=== PATIENT | female | born 1940 | race Two or more races ===

== ENCOUNTER 2016-09-17 11:57 | Inpatient (IN) | payer OTHER ==
[~2016-09-17] VITALS: Ht 152.4 cm; Wt 44.3 kg
--- NOTE | 2016-09-17 12:10 | NUR ---
PT NIMCO BURCIAGA FROM HOME FOR MEDICAL CLEARANCE TO PSYCH. PT ON 5150 HOLD FOR DTS/DTO. A/OX3. DENIES PHYSICAL COMPLAINT. CALM AND COMPLIANT WITH STAFF INSTRUCTION. NAD NOTED. DAUGHTER AT BEDSIDE.
[2016-09-17 12:24] LABS: BASOPHILS # (AUTO) 0.1 /CMM (0.0-0.2); BASOPHILS % (AUTO) 1.1 % (0.0-2.0); EOSINOPHILS % (AUTO) 0.7 % (0.0-6.0); HEMATOCRIT 36 % (33-45); MEAN CORPUSCULAR HEMOGLOBIN 32 PG (26.0-33.0); MEAN CORPUSCULAR HGB CONC 34 g/dl (31.0-36.0); MEAN CORPUSCULAR VOLUME 95 fL (82-100); MONOCYTES # (AUTO) 0.2 /CMM (0.1-1.30); MONOCYTES % (AUTO) 4.7 % (2.0-12.0); NEUTROPHILS # (AUTO) 3.5 /CMM (1.8-8.9); NEUTROPHILS % (AUTO) 71.5 % (43.0-81.0); PLATELET COUNT (AUTO) 302 /CMM (150-450); RDW COEFFICIENT OF VARIATION 12.3 (11.5-15.0); RED BLOOD CELL COUNT(AUTO) 3.76 MIL/uL (4.0-5.2); WHITE BLOOD COUNT (AUTO) 4.8 K/uL (4.3-11.0)
[2016-09-17 12:33] LABS: CALCIUM, SERUM 8.8 mg/dL (8.5-10.1); CARBON DIOXIDE 31 mmol/L (21-32); CHLORIDE 106 mmol/L (98-107); CREATININE 1.1 mg/dL (0.6-1.3); GLUCOSE 107 mg/dL (74-106); POTASSIUM 4.5 mmol/L (3.5-5.1); SODIUM SERUM 141 mmol/L (136-145); UREA NITROGEN, BLOOD 21 mg/dL (7-18)
[2016-09-17 12:34] LABS: APPEARANCE,URINE Clear (CLEAR); BLOOD, URINE Small Ery/uL (NEGATIVE); COLOR,URINE Yellow (YELLOW); KETONES,URINE Trace (NEGATIVE); LEUKOCYTE ESTERASE ,URINE Negative (NEGATIVE); NITRITE, URINE Negative (NEGATIVE); PROTEIN,URINE 100 mg/dl (NEGATIVE); UGLUCOSE Negative (NEGATIVE)
[2016-09-17 12:35] LABS: BILIRUBIN,URINE SMALL (NEGATIVE)
[2016-09-17 12:37] LABS: ADD URINE CULTURE NO; BACTERIA,URINE Few /HPF (None Seen); SQUAMOUS EPITHELIAL CELL,UR Few /HPF (None Seen); WBC,URINE 0-2 /HPF (0-3)
[2016-09-17 12:39] LABS: ALANINE AMINOTRANSFERASE 24 U/L (12-78); ALBUMIN 3.8 g/dL (3.4-5.0); ALCOHOL, BLOOD < 3 mg/dL (0-0); ALKALINE PHOSPHATASE 77 U/L (46-116); ASPARTATE AMINOTRANSFERASE 28 U/L (15-37); BILIRUBIN,DIRECT 0.1 mg/dL (0.0-0.2); BILIRUBIN,TOTAL 0.2 mg/dL (0.2-1.0); TOTAL PROTEIN, SERUM 7.2 g/dL (6.4-8.2)
[2016-09-17 12:40] LABS: ACETAMINOPHEN 0 ug/ml (10-30); SALICYLATE 1.3 mg/dL (2.8-20.0)
[2016-09-17 12:48] LABS: CANNABINOID, URINE NEGATIVE (NEGATIVE); PHENCYCLIDINE SCREEN,URINE NEGATIVE (NEGATIVE)
--- NOTE | 2016-09-17 12:54 | NUR ---
REPORT GIVEN TO JORGITO ELDRIDGE FOR ADMISSION
--- NOTE | 2016-09-17 13:46 | NUR ---
PT TRANSPORTED TO [facility] IN STABLE CONDITION
--- NOTE | 2016-09-17 14:11 | NUR ---
RN-CO: DR GARCIA WAS NOTIFIED REGARDING THE ADMISSION, AND GAVE ADMITTING ORDERS. PATIENT WAS WITH DAUGHTER DURING ADMISSION PROCESS AND SIGNED ALL ADMITTING PAPERS AFTER RN EXPLAINED TO HER. BELONGINGS WAS SCREENED FOR CONTRABANDS.
--- NOTE | 2016-09-17 14:14 | NUR ---
RN-CO: PATIENT'S RIGHT BOOKLET WAS GIVEN AND EXPLAINED TO HER AND TO HER DAUGHTER.
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
[2016-09-17 14:30] VITALS: BP 164/86
[2016-09-17] MEDS ORDERED: LORAZEPAM 0.5 MG TABLET PO PRN (14:30)
[2016-09-17] MEDS ORDERED: ACETAMINOPHEN 325 MG TABLET PO PRN (14:30)
[2016-09-17] MEDS ORDERED: MAG HYDROX/AL HYDROX/SIMETH 30 ML UDC PO PRN (14:30)
[2016-09-17] MEDS ORDERED: MAGNESIUM HYDROXIDE 30 ML UDC PO PRN (14:30)
[2016-09-17 16:12] VITALS: BP 152/77
[2016-09-17] MEDS ORDERED: OLANZAPINE 2.5 MG TABLET PO PRN (16:30)
[2016-09-17] MEDS ORDERED: OLANZAPINE 2.5 MG TABLET PO SCH (20:00)
[2016-09-17 21:45] VITALS: BP 133/76
[2016-09-17] MEDS: TEMAZEPAM 7.5 MG CAPSULE PO PRN (23:29)
[2016-09-18] MEDS: TEMAZEPAM 7.5 MG CAPSULE PO PRN ×2 (01:19→23:18)
[2016-09-18 07:35] LABS: ALBUMIN 3.3 g/dL (3.4-5.0); BILIRUBIN,TOTAL 0.4 mg/dL (0.2-1.0); CALCIUM, SERUM 8.6 mg/dL (8.5-10.1); CREATININE 0.9 mg/dL (0.6-1.3); POTASSIUM 4.3 mmol/L (3.5-5.1); TOTAL PROTEIN, SERUM 6.3 g/dL (6.4-8.2)
[2016-09-18 08:00] VITALS: BP 155/72
[2016-09-18] MEDS: SERTRALINE HCL 25 MG TABLET PO SCH (08:10)
--- NOTE | 2016-09-18 10:27 | NUR ---
UR Update: TEJAS lucas Brittny (phone: [phone]) family preservation caseworker for [facility] reynoso voicemail with clinical review. material requirements worker faxed Brittny (fax: [phone]) face sheet, 5150 hold, and NEENA form.
--- NOTE | 2016-09-18 12:21 | NUR ---
Psychosocial assessment was reviewed and I concur with the information provided. No changes are necessary. Destini Aguiar, [employer] [id number] Addendum: 09/18/16 at 1221 by DESTINI AGUIAR SW Amended: Links added.
--- NOTE | 2016-09-18 12:21 | NUR ---
Initial Discharge Plan: Patient resides alone in a mobile home [address] [facility] [address] ([phone]). Patient wants to return home upon discharge. canvas worker apprentice spoke to patient's daughter Armida Dove(/[phone]) who stated that she wanted her mother to return home as her and her sister live close to her and check in on her every day. canvas worker apprentice will follow- up with MD, family, and patient regarding appropriate discharge plan. canvas worker apprentice will help form a safe and proper discharge.
--- NOTE | 2016-09-18 13:23 | NUR ---
WOUND CARE CONSULT: PT NOTED TO HAVE DRY ABRASIONS TO LEGS, PRESENT ON ADMISSION. NO DRAINAGE NOTED. PT IS AMBULATORY AND CONTINENT. WILL SEE PRN.
--- NOTE | 2016-09-18 14:52 | NUR ---
bake room worker spoke to Mehrdad ([phone]) skilled nursing case manager for [facility] who stated that patient had refused there services in the past and was recently seeing an outreach team from [facility] from [facility]. Mehrdad stated that he would like to come speak to her and possibly get her enrolled in their case management program to provide after care services for her. bake room worker will follow-up.
--- NOTE | 2016-09-18 15:12 | NUR ---
UR Update: TEJAS spoke to Brittny (phone: [phone]) embedded case manager for [facility] who confirmed approval through September 20, 2016, with the next review due Tuesday September 20, 2016.
[2016-09-18 16:00] VITALS: BP 138/66
[2016-09-18] MEDS: OLANZAPINE 2.5 MG TABLET PO SCH (20:07)
[2016-09-18 20:17] VITALS: BP 135/77
[2016-09-19 08:00] VITALS: BP 149/71
[2016-09-19] MEDS: SERTRALINE HCL 25 MG TABLET PO SCH (08:09)
[2016-09-19 16:00] VITALS: BP 142/74
[2016-09-19 20:00] VITALS: BP_SYST 143; BP_SYST 145; BP_DIAS 63; BP_DIAS 65; BP_DIAS 85
[2016-09-19] MEDS: OLANZAPINE 2.5 MG TABLET PO SCH (20:10)
[2016-09-20 07:37] LABS: CALCIUM, SERUM 8.6 mg/dL (8.5-10.1); CREATININE 0.9 mg/dL (0.6-1.3); POTASSIUM 4.4 mmol/L (3.5-5.1)
[2016-09-20 08:00] VITALS: BP 164/66
[2016-09-20] MEDS: SERTRALINE HCL 25 MG TABLET PO SCH (08:20)
--- NOTE | 2016-09-20 09:22 | NUR ---
marquetry worker spoke to patient's director case Winnie ([phone]) from [facility] with the Department of Mental Health. Winnie stated that she would fax over consent of release of information for the patient that is needed to provide her with a follow-up appointment with the psychiatrist. marquetry worker will follow-up.
--- NOTE | 2016-09-20 13:10 | NUR ---
UR Update: TEJAS left Carry (phone: [phone]) case preparer and liner for [facility] reynoso voicemail with updated clinical.
[2016-09-20 16:00] VITALS: BP 136/66
[2016-09-20 20:00] VITALS: BP 145/79
[2016-09-20] MEDS: OLANZAPINE 2.5 MG TABLET PO SCH (20:07)
[2016-09-20] MEDS: TEMAZEPAM 7.5 MG CAPSULE PO PRN (22:10)
[2016-09-21 08:00] VITALS: BP 151/76
[2016-09-21] MEDS: SERTRALINE HCL 25 MG TABLET PO SCH (08:20)
[2016-09-21 15:59] VITALS: BP 156/75
[2016-09-21] MEDS: OLANZAPINE 2.5 MG TABLET PO SCH (19:08)
[2016-09-21 20:00] VITALS: BP 152/75
[2016-09-22 08:00] VITALS: BP 161/83
[2016-09-22] MEDS: SERTRALINE HCL 25 MG TABLET PO SCH (08:33)
[2016-09-22 10:56] VITALS: BP 138/67
--- NOTE | 2016-09-22 14:15 | NUR ---
GPS/RN PT IS VISUALLY MORE CALM AND NOT AGITATED COMPARE TO PREVIOUS DAYS. NO BEHAVIOR ISSUES NOTED ACCORDING TO BIOLOGICAL CHEMIST NURSE SURI ELDRIDGE. REPORT TO PT'S DAUGHTER BEVERLEY REGARDING HER MOTHER MEDICATIONS,TREATMENT, PROGRESS AND OVERALL CONDITION GIVEN ON HER ARRIVAL TO THE UNIT REQUESTED. WITNESSED THE CONVERSATION BETWEEN DR GARCIA AND PT 'S DAUGHTER. ALL QUESTIONS FROM DAUGHTER WERE ANSWERED APPROPRIATELY. PERSONALLY WALKED PT DAUGHTER TO THE DOOR AND REASSURED THAT PT WILL BE MONITORED CLOSELY.
[2016-09-22 16:00] VITALS: BP 157/77
[2016-09-22 20:01] VITALS: BP 151/69
[2016-09-22] MEDS: OLANZAPINE 2.5 MG TABLET PO SCH (20:02)
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
--- NOTE | 2016-09-22 23:21 | NUR ---
GPS RN NOTES PT IS RESTING IN THE BED WITH EYES CLOSED,NO ACUTE DISTRESS NOTED, NO BX PROBLEMS NOTED AT THIS TIME AND CALM COOPERATIVE , WILL CONTINUE TO MONITOR FOR BEHAVIOR AND SAFETY
--- NOTE | 2016-09-23 06:11 | NUR ---
GPS RN NOTES PT REMAINED STABLE , AND PT. 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
[2016-09-23 08:00] VITALS: BP 160/91
[2016-09-23] MEDS: LISINOPRIL (20MG) 20 MG TABLET PO SCH (08:03)
[2016-09-23] MEDS: SERTRALINE HCL 25 MG TABLET PO SCH (08:03)
--- NOTE | 2016-09-23 10:58 | NUR ---
UR Update: SW left Carry (phone: [phone]) counseling case manager for [facility] a voicemail with updated clinical. breaker table worker will follow-up.
--- NOTE | 2016-09-23 13:15 | NUR ---
manufacturing worker faxed a consent of release of information signed by the patient to her rn field case manager Winnie ([phone]) from [facility] with the Department of Mental Health. manufacturing worker will follow-up.
--- NOTE | 2016-09-23 14:20 | NUR ---
SW met with pt's daughters Armida Dove(/[phone]) and Jenny [phone] and explained the process of dis-enrolling from [facility] and enrolling back into straight medicare and gave referral to follow up applying for [employer]i-[employer] for the patient. They were disappointed that pt. could not stay at the hospital for longer than she may need to but agree to pick her up when pt. needs to discharge.
--- NOTE | 2016-09-23 14:21 | NUR ---
UR update: SW left a voicemail for [employer] (phone: [phone]) regarding pt's court hearing update. Pt's hold was upheld and pt. can stay until MD discharges the patient.
--- NOTE | 2016-09-23 15:01 | NUR ---
dry drug worker spoke to Mehrdad ([phone]) outpatient case manager for [facility] who notified that he will come Friday morning to talk to the patient regarding after care.
[2016-09-23 16:23] VITALS: BP 103/64
--- NOTE | 2016-09-23 16:26 | NUR ---
UR update: SW received a voicemail from [employer] (phone: [phone]) from [facility] and we are authorized until September 24, with a review due on the 25 of September if pt. continues to meet criteria for psychiatric hospitalization. TEJAS will follow up
[2016-09-23 19:39] VITALS: BP_SYST 116; BP_SYST 151; BP_DIAS 59; BP_DIAS 69
[2016-09-23] MEDS: OLANZAPINE 2.5 MG TABLET PO SCH (20:02)
--- NOTE | 2016-09-24 06:22 | NUR ---
GPS RN NOTES PT REMAINED STABLE , AND PT. 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
[2016-09-24] MEDS: SERTRALINE HCL 25 MG TABLET PO SCH (08:08)
[2016-09-24] MEDS: LISINOPRIL (20MG) 20 MG TABLET PO SCH (08:08)
[2016-09-24 08:26] VITALS: BP 164/74
--- NOTE | 2016-09-24 09:34 | NUR ---
TEJAS left a voicemail for Jenny [phone] , pt's daughter, informing of pt's discharge for tomorrow and asking to call back to confirm a receipt of the message and agreement to picker/puller the patient. Addendum: 09/25/16 at 1040 by LINDA LAZARO Jenny called back and left a voicemail confirming that they will picker/puller the patient today.
[2016-09-24 09:55] VITALS: BP 132/65
[2016-09-24 16:01] VITALS: BP 122/76
[2016-09-24 19:59] VITALS: BP 132/65
[2016-09-24] MEDS: OLANZAPINE 2.5 MG TABLET PO SCH (20:25)
[2016-09-24] MEDS ORDERED: DONEPEZIL 5 MG TABLET PO SCH (22:00)
--- NOTE | 2016-09-25 06:41 | NUR ---
GPS RN NOTES PT REMAINED STABLE , AND PT. 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
[2016-09-25] MEDS: LISINOPRIL (20MG) 20 MG TABLET PO SCH (08:27)
[2016-09-25] MEDS: SERTRALINE HCL 25 MG TABLET PO SCH (08:27)
[2016-09-25 08:28] VITALS: BP 154/73
--- NOTE | 2016-09-25 10:36 | NUR ---
division merchandise manager from [facility] (phone: [phone]) left addiction social worker a voicemail regarding nursing home facilities [facility] ([phone]), [facility] ([place]- [phone]), and [facility] ([facility]cx[facility]-[phone]). relief worker spoke to Brittny regarding whether insurance would authorize more days so that addiction social worker can fax the nursing home facilitates and follow-up. Brittny stated that it was no longer necessary stating that the family did not want a nursing home facility. Brittny stated that if patient was ready for discharge than patient can be discharged back home today and if for any reason patient needed a longer stay than addiction social worker must provide clinicals.
--- NOTE | 2016-09-25 14:06 | NUR ---
FELT HAT INSPECTOR AND PACKER PT DC UNDER STABLE CONDITION SO SUICIDAL IDEATION, HALLUCINATION, VERBALIZED, EXIT CARE DONE, TEACHING DONE TO PT AND HER DAUGHTER, SHE LEFT HOSPITAL WITH DAUGHTER. EXIT CARE DONE PT LEFT STABLE UNDER STABLE CONDITION.
--- NOTE | 2016-09-25 16:01 | NUR ---
Discharge Note: Patient was discharged back home [address] [facility] [address] ([phone]). Patient's daughter's Armida Dove ([phone]) and Jenny ([phone]) were notified and picked her up via private vehicle. Patient and patient's daughter were agreeable with discharge plan. Patient's mood and affect were appropriate upon discharge. Patient denied suicidal and homicidal ideations. Patient and patient's daughter were informed about patient's follow-up appointments. Patient has a scheduled appointment with psychiatrist Sadiq Wiley MD September 30, 2016 at 11:30am at [address] [place] [address] ([phone]). Patient also has a follow-up appointment scheduled for October 02, 2016 with therapist Kemi Gan at [facility] [address] [place] [address] [address] [place] [address] ([phone]). viscose cellar worker spoke to patient's daughter Armida regarding future placement options for the patient and informed her that in the future if she wanted placement for the patient they can contact the insurance and social service manager also informed her that she may be able to assist her and provided patient's daughter with her contact information. Facilitated info to IDT team who are in agreement with discharge arrangement. The multidisciplinary exitcare form was done, printed, signed, and given to the patient.
--- NOTE | 2016-09-26 11:50 | NUR ---
UR Update: TEJAS faxed Pearl (phone: [phone]/fax: [phone] ) counter caser for [facility] discharge note and med-list.
== END 2016-09-25 14:15 | disposition home or self-care (01) | DRG 885 ==
LOC: ER 12:03 → GPS 13:05
PROVIDERS: ADMIT Psychiatry & Neurology Psychosomatic Medicine; ATTEND Family Medicine
DX: F20.9 Schizophrenia, unspecified (principal); F02.80 Dementia in other diseases classified elsewhere, unspecified severity, without behavioral disturbance, psychotic disturbance, mood disturbance, and anxiety; F33.1 Major depressive disorder, recurrent, moderate; F29 Unspecified psychosis not due to a substance or known physiological condition; G30.9 Alzheimer's disease, unspecified
CPT/HCPCS: 36415; 80048-TC; 80053-TC; 80061-TC; 80076-TC; 80305; 81000-TC; 85025-TC; 87081-TC; A4606; G0480; G6039-TC; Z7610